=== PATIENT | male | born 1980 | race Caucasian/White ===

== ENCOUNTER 2023-06-24 10:38 | Outpatient (OUT) | payer MEDICARE, MEDICAID, SELFPAY ==
--- NOTE | 2023-06-24 | XR_ITS ---
The [address] [address] Patient Name: CHELSI PYLE MRN: [id number] date: 1980 Sex: M Assigned Patient Location: RAD Current Patient Location: [facility] Accession/Order Number: [id number] Exam Date: 06/24/2023 11:05 Report Date: 06/24/2023 16:38 At the request of: MARILYN OROZCO Procedure: XR foot [place] min 3V EXAMINATION: XR foot [place] min 3V HISTORY: BILATERAL FOOT PAIN COMPARISON: No relevant comparison available. FINDINGS: RIGHT FINDINGS: BONES: Moderate degenerative changes the first metatarsophalangeal joint and prominent lateral deviation of the toe. SOFT TISSUES: No visible soft tissue swelling. OTHER: Negative. LEFT FINDINGS: BONES: Moderate degenerative changes the first metatarsophalangeal joint prominent lateral deviation of the toe. SOFT TISSUES: No visible soft tissue swelling. OTHER: Negative. XR/XR foot [place] min 3V IMPRESSION: RIGHT CONCLUSION: Prominent bunion formation and moderate degenerative changes of the first metatarsophalangeal joint. LEFT CONCLUSION: Prominent bunion formation and moderate degenerative change of the first metatarsophalangeal joint. Electronically authenticated by: GARRETT REINOSO Date: 06/24/2023 16:38
== END 2023-06-24 10:39 | disposition home or self-care (01) ==
LOC: RAD 10:40
PROVIDERS: Visit Provider Podiatrist Foot & Ankle Surgery
DX: M79.672 Pain in left foot (principal); M79.671 Pain in right foot
CPT/HCPCS: 73630

== ENCOUNTER 2023-07-29 10:15 | Outpatient (OUT) | payer MEDICARE, MEDICAID, SELFPAY ==
--- NOTE | 2023-07-29 | XR_ITS ---
The [address] [address] Patient Name: CHELSI PYLE MRN: [id number] date: 1980 Sex: M Assigned Patient Location: [facility] Current Patient Location: Accession/Order Number: [id number] Exam Date: 07/29/2023 10:52 Report Date: 07/30/2023 06:43 At the request of: MARILYN OROZCO Procedure: XR foot RT min 3V PROCEDURE: XR foot RT min 3V HISTORY: RIGHT FOOT PAIN ; mid forefoot pain following injury COMPARISON: XR foot bilateral 06/24/2023 FINDINGS: BONES:Bunion formation, joint space narrowing, and small subchondral cysts involving the first metatarsophalangeal joint. No fracture or dislocation. SOFT TISSUES:Mild distal dorsal soft tissue swelling. EFFUSION:None visible. OTHER: Negative. XR/XR foot RT min 3V IMPRESSION: 1. No acute bone abnormality. 2. 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 Electronically authenticated by: GARRETT REINOSO Date: 07/30/2023 06:43
== END 2023-07-29 10:16 | disposition home or self-care (01) ==
LOC: RAD 10:16
PROVIDERS: Visit Provider Podiatrist Foot & Ankle Surgery
DX: M79.671 Pain in right foot (principal)
CPT/HCPCS: 73630

== ENCOUNTER 2023-08-11 09:06 | Outpatient (OUT) | payer MEDICARE, MEDICAID, SELFPAY ==
--- NOTE | 2023-08-11 09:14 | ECG_ITS ---
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
--- NOTE | 2023-08-11 09:14 | XR_ITS ---
The [address] [address] Patient Name: CHELSI PYLE MRN: [id number] date: 1980 Sex: M Assigned Patient Location: [facility] Current Patient Location: [facility] Accession/Order Number: [id number] Exam Date: 08/11/2023 10:11 Report Date: 08/11/2023 10:24 At the request of: MARILYN OROZCO Procedure: XR chest 2V EXAM: XR chest 2V HISTORY: Preop exam COMPARISON: None. TECHNIQUE: PA and lateral views of the chest. FINDINGS: The cardiomediastinal silhouette is normal. No focal consolidation is identified. There is no pneumothorax. No pleural effusion is noted. The osseous structures are intact. XR/XR chest 2V IMPRESSION: No acute cardiopulmonary process. Electronically authenticated by: AZALEA ASKEW Date: 08/11/2023 10:24
--- NOTE | 2023-08-11 09:58 | P.GSHP_ITS ---
History of Present Illness History of Present Illness Chief complaint: Halux rigidous right foot Narrative: Patient presents for preadmission testing. Please see HPI from Dr. Kumar dated 07/29/2023. Review of Systems ROS Narrative Please see ROS from Dr. Kumar dated 07/29/2023. [facility] Medical History (Updated 08/11/23 @ 10:15 by Gabriela Cadet NP) ADHD ?F90.9 - Attention-deficit hyperactivity disorder, unspecified type (ICD-10) Anemia ?D64.9 - Anemia, unspecified (ICD-10) Anxiety ?F41.9 - Anxiety disorder, unspecified (ICD-10) Back pain ?M54.9 - Dorsalgia, unspecified (ICD-10) Congestive heart failure ?I50.9 - Heart failure, unspecified (ICD-10) Coronary artery disease ?I25.10 - Atherosclerotic heart disease of [place] coronary artery without angina pectoris (ICD-10) COVID-19 ?U07.1 - COVID-19 (ICD-10) Depression ?F32.A - Depression, unspecified (ICD-10) Diabetes ?E11.9 - Type 2 diabetes mellitus without complications (ICD-10) Extremity edema ?R60.0 - Localized edema (ICD-10) Foot pain ?M79.673 - Pain in unspecified foot (ICD-10) Gout ?M10.9 - Gout, unspecified (ICD-10) Hallux rigidus ?M20.20 - Hallux rigidus, unspecified foot (ICD-10) Hallux valgus ?M20.10 - Hallux valgus (acquired), unspecified foot (ICD-10) Heartburn ?R12 - Heartburn (ICD-10) History of blood transfusion ?Z92.89 - Personal history of other medical treatment (ICD-10) Hypertension ?I10 - Essential (primary) hypertension (ICD-10) Migraine ?G43.909 - Migraine, unspecified, not intractable, without status migrainosus (ICD-10) Nonischemic cardiomyopathy ?I42.8 - Other cardiomyopathies (ICD-10) Pneumonia ?J18.9 - Pneumonia, unspecified organism (ICD-10) Seizures ?R56.9 - Unspecified convulsions (ICD-10) Sleep apnea ?G47.30 - Sleep apnea, unspecified (ICD-10) Transient ischemic attack ?G45.9 - Transient cerebral ischemic attack, unspecified (ICD-10) Family History (Updated 08/11/23 @ 09:37 by Gabriela Cadet NP) Other Congestive heart failure Family history of COPD (chronic obstructive pulmonary disease) Family history of heart disease Social History (Updated 08/11/23 @ 09:31 by Gabriela Cadet NP) Within the past year, how often did you have a drink containing alcohol: monthly or less Do you use any of these nicotine containing products: e-cigarettes and vaping products Highest level of school completed/degree received: high school graduate Meds Home Medications and Allergies Home Medications Medication Instructions Recorded Confirmed Type carvedilol 6.25 mg tablet 6.25 mg PO Q12H 08/11/23 08/11/23 History dextroamphetamine-amphetamine ER 50 mg PO DAILY 08/11/23 08/11/23 History 50 mg capsule,3 bead,ext release 24hr (Mydayis) digoxin 250 mcg (0.25 mg) tablet 250 mcg PO DAILY 08/11/23 08/11/23 History (Digox) ferrous sulfate 325 mg (65 mg 325 mg PO DAILY 08/11/23 08/11/23 History iron) tablet (Feosol) furosemide 40 mg tablet 40 mg PO QAM 08/11/23 08/11/23 History potassium chloride 20 mEq 20 meq PO DAILY 08/11/23 08/11/23 History tablet,extended release (K-Tab) pregabalin 100 mg capsule (Lyrica) 100 mg PO Q12H 08/11/23 08/11/23 History risperidone 1 mg/mL oral solution 1 mg PO BID 08/11/23 08/11/23 History (Risperdal) sitagliptin phosphate 100 mg 100 mg PO DAILY 08/11/23 08/11/23 History tablet (Januvia) Allergies Allergy/AdvReac Type Severity Reaction Status Date / Time metformin Allergy Rash Verified 08/11/23 09:29 methadone Allergy Rash Verified 08/11/23 09:29 NSAIDS (Non-Steroidal Allergy renal Verified 08/11/23 09:29 Anti-Inflamma insufficiency Exam Narrative Exam Narrative: Constitutional: Awake, alert, comfortable, well-appearing, nontoxic, interactive, vital signs as charted Head: Normocephalic, atraumatic Neck: Supple, normal appearance, normal range of motion, no meningeal signs, no lymphadenopathy Respiratory: No respiratory distress, breath sounds clear Cardiovascular: Regular rate and rhythm, strong and regular heart tones Neuro: No neurological deficits, normal sensation Psychiatric: Oriented ?3, normal affect Assessment and Plan Assessment and Plan (1) Hallux rigidus: (2) Hallux valgus: (3) Foot pain: Plan Right 1st metatarsal phalangeal joint fusion with bone graft as needed scheduled with Dr. Kumar 08/25/2023.
[2023-08-11 10:09] LABS: Basophils Percent Auto 0.3 % (0.2-2.0); Eosinophils Absolute Auto 0.1 10^3/uL (0.0-0.7); Eosinophils Percent Auto 1.7 % (0.9-7.0); Hematocrit 33.7 % (42.0-54.0); Hemoglobin 10.3 g/dL (14.0-18.0); Immature Granulocytes Abs Auto 0.01 10^3/uL (0.00-0.03); Immature Granulocytes Pct Auto 0.3 % (0.0-0.5); Lymphocytes Absolute Auto 0.8 10^3/uL (1.2-3.8); Lymphocytes Percent Auto 23.6 % (20.5-60.0); Mean Corpuscular HGB Conc 30.6 g/dL (29.9-35.2); Mean Corpuscular Hemoglobin 27.5 pg (25.9-34.0); Mean Corpuscular Volume 89.9 fL (80.0-94.0); Mean Platelet Volume 11.9 fL (9.5-13.5); Monocytes Absolute Auto 0.3 10^3/uL (0.3-0.8); Monocytes Percent Auto 7.7 % (1.7-12.0); Neutrophils Absolute Auto 2.3 10^3/uL (1.4-6.5); Neutrophils Percent Auto 66.4 % (43.0-75.0); Platelet Count 62 10^3/uL (150-450); Red Blood Count 3.75 10^6/uL (4.70-6.10); White Blood Count 3.5 10^3/uL (4.0-11.0)
[2023-08-11 10:21] LABS: INR 0.97; Partial Thromboplastin Time 29.5 sec (22.3-36.2); Prothrombin Time 10.3 sec (9.0-11.6)
[2023-08-11 11:15] LABS: Anion Gap 12.2; BUN Creatinine Ratio 12.9; Calcium 8.8 mg/dL (8.5-10.1); Chloride 103 mmol/L (98-107); Estimated GFR (African America 34 (>=60); Estimated GFR (Non-African Ame 28 (>=60); Glucose 221 mg/dL (74-106); Potassium 4.2 mmol/L (3.5-5.1); Sodium 139 mmol/L (136-145)
[2023-08-11 12:24] LABS: Digoxin 2.3 ng/mL (0.9-2.0)
== END 2023-08-11 09:07 | disposition home or self-care (01) ==
LOC: PST 09:09
PROVIDERS: Visit Provider Podiatrist Foot & Ankle Surgery
DX: Z01.810 Encounter for preprocedural cardiovascular examination (principal); Z01.812 Encounter for preprocedural laboratory examination; M20.21 Hallux rigidus, right foot; M20.11 Hallux valgus (acquired), right foot; I25.10 Atherosclerotic heart disease of native coronary artery without angina pectoris; I50.9 Heart failure, unspecified; Z79.899 Other long term (current) drug therapy
CPT/HCPCS: 36415; 71046; 80048; 80162; 85025; 85610; 85730; 93005; G0463

== ENCOUNTER 2024-07-15 23:01 | Emergency (ER) | payer MEDICARE, SELFPAY ==
[2024-07-15 23:08] VITALS: BP 151/91; PULSE 86; TEMP 36.9; O2SAT 99; BMI 34.6
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
[2024-07-16] MEDS: METHYLPREDNISOLONE SOD SUCC PF 125 MG/2 ML VIAL IM (02:33)
== END 2024-07-16 02:45 | disposition home or self-care (01) ==
PROVIDERS: Emergency Provider Internal Medicine
DX: S39.012A Strain of muscle, fascia and tendon of lower back, initial encounter (principal); S46.911A Strain of unspecified muscle, fascia and tendon at shoulder and upper arm level, right arm, initial encounter; X50.9XXA Other and unspecified overexertion or strenuous movements or postures, initial encounter
CPT/HCPCS: 96372; 99284; J2919